=== PATIENT | male | born 1990 | race Caucasian/White ===

== ENCOUNTER 2024-01-26 12:36 | Emergency (ER) | payer MEDICAID ==
[~2024-01-26] VITALS: Ht 177.8 cm; Wt 79.0 kg
[2024-01-26 12:43] VITALS: O2SAT 98
[2024-01-26 13:49] VITALS: BP 164/99; PULSE 99; RESP 20; TEMP 37.00296; O2SAT 98
[2024-01-26] MEDS: CLONIDINE 0.1MG TABLET PO ONE (14:00)
[2024-01-26 14:57] LABS: BASOPHILS % 0.2 % (0.0-2.0); EOSINOPHILS % 3.4 % (0.0-5.0); HEMATOCRIT. 35.4 % (42.0-52.0); HEMOGLOBIN. 11.9 g/dL (14.0-18.0); LYMPHOCYTES % 33.1 % (20.0-50.0); MEAN CORPUSCULAR HEMOGLOBIN 31.4 pg (28.0-32.0); MEAN CORPUSCULAR HGB CONC 33.8 g/dL (31.0-37.0); MEAN CORPUSCULAR VOLUME 92.9 fL (80.0-94.0); MEAN PLATELET VOLUME 7.4 fl (7.4-10.4); MONOCYTES % 10.9 % (2.0-8.0); NEUTROPHILS % 52.4 % (40.0-76.0); PLATELET 335 x1000/uL (130-400); RED BLOOD CELL COUNT 3.81 mill/uL (4.7-6.1); RED CELL DISTRIBUTION WIDTH 15.2 % (11.6-14.6); WHITE BLOOD COUNT 5.2 x1000/uL (4.5-11.0)
[2024-01-26 15:03] LABS: CHLORIDE 106 mEq/L (98-107); POTASSIUM 4.5 mEq/L (3.5-5.1); SODIUM 139 mEq/L (136-145)
[2024-01-26 15:04] LABS: CALCIUM 9.8 mg/dL (8.7-10.4); CARBON DIOXIDE 31 mEq/L (21-32)
[2024-01-26 15:09] LABS: CREATININE 1.2 mg/dL (0.6-1.3); GLUCOSE 73 mg/dL (70-105); UREA NITROGEN BLOOD 19 mg/dL (9-23)
[2024-01-26 15:10] LABS: TROPONIN I HIGH SENSITIVITY 7 ng/L (3.0-53)
== END 2024-01-26 15:47 | disposition left against medical advice (07) ==
LOC: ER 12:56
DX: R00.2 Palpitations (principal); R55 Syncope and collapse; R06.02 Shortness of breath; I10 Essential (primary) hypertension
CPT/HCPCS: 36415; 80048; 83880; 84484; 85025; 99283